=== PATIENT | female | born 1965 | race Caucasian/White ===

== ENCOUNTER 2017-02-01 06:09 | Day surgery (SDC) | payer OTHER ==
[~2017-02-01] VITALS: Ht 180.3 cm; Wt 101.3 kg
[~2017-02-01 06:09] MED LIST: ASPIRIN E.C. 8181 MG PO; EFFEXOR XR75 MG/CAP PO; NOLVADEX 1010 MG/TAB PO
[2017-02-01 07:20] VITALS: BP 124/78; PULSE 63; TEMP 98.4
[2017-02-01] MEDS ORDERED: NEURONTIN100 MG/CAP PO (07:25)
[2017-02-01] MEDS ORDERED: OMEGA-3 FISH1000 MG PO (07:26)
[2017-02-01] MEDS ORDERED: ULTRAM 50MG TAB50 MG PO (07:28)
[2017-02-01] MEDS ORDERED: PLAQUENIL 200M200 MG PO (07:32)
[2017-02-01] MEDS ORDERED: VOLTAREN 75 DR75 MG PO (07:32)
[2017-02-01] MEDS ORDERED: PROZAC 20MG20 MG PO (07:33)
[2017-02-01] MEDS ORDERED: TOPROL XL100 MG PO (07:34)
[2017-02-01] MEDS ORDERED: ASPIRIN 81M81 MG/TA2 PO (07:34)
[2017-02-01] MEDS ORDERED: SYNTHROID0.05 MG/TA PO (07:35)
[2017-02-01] MEDS ORDERED: AMBIEN 5MG TABLE5 MG PO (07:35)
[2017-02-01] MEDS ORDERED: MELATONIN1 MG PO (07:35)
[2017-02-01] MEDS ORDERED: VITAMIN D32000 IU PO (07:36)
[2017-02-01] MEDS ORDERED: CRESTOR40 MG PO (07:36)
[2017-02-01 08:38] VITALS: BP 130/74; PULSE 66; TEMP 98.7
[2017-02-01 08:53] VITALS: BP 122/67; PULSE 67
[2017-02-01 09:08] VITALS: BP 114/71; PULSE 62
[2017-02-01 09:22] VITALS: BP 115/62; PULSE 68
== END 2017-02-01 09:15 | disposition home or self-care (01) ==
LOC: SDCO 06:09
DX: Z12.11 Encounter for screening for malignant neoplasm of colon (principal); K52.9 Noninfective gastroenteritis and colitis, unspecified; K63.3 Ulcer of intestine; K64.1 Second degree hemorrhoids; K64.4 Residual hemorrhoidal skin tags; E78.00 Pure hypercholesterolemia, unspecified; F17.200 Nicotine dependence, unspecified, uncomplicated; E07.9 Disorder of thyroid, unspecified; Z85.3 Personal history of malignant neoplasm of breast
CPT/HCPCS: J2250; J2405; J3010; J7030

== ENCOUNTER 2020-05-04 16:20 | Inpatient (IN) | payer OTHER ==
[~2020-05-04] VITALS: Ht 180.3 cm; Wt 95.0 kg
[~2020-05-04 16:20] MED LIST changes: +AMBIEN 5MG TABLE5 MG PO; +ASPIRIN 81M81 MG/TA2 PO; +CRESTOR40 MG PO; +MELATONIN1 MG PO; +NEURONTIN100 MG/CAP PO; +OMEGA-3 FISH1000 MG PO; +PLAQUENIL 200M200 MG PO; +PROZAC 20MG20 MG PO; +SYNTHROID0.05 MG/TA PO; +TOPROL XL100 MG PO; +ULTRAM 50MG TAB50 MG PO; +VITAMIN D32000 IU PO; +VOLTAREN 75 DR75 MG PO
[2020-05-04] MEDS ORDERED: TRICOR 48MG48 MG PO (17:20)
[2020-05-04 17:56] VITALS: BP 134/68; PULSE 80; TEMP 98.4
--- NOTE | 2020-05-04 18:25 | NUR ---
PT SETTLED INTO ROOM, INTRODUCED TO CALL LIGHT AND PHONE, KEY ACCOUNT REPRESENTATIVE NUMBER PROVIDED FOR PT AND PT SPOUSE. MED REC, ADMISSION INITIAL AND ADMISSION B, ALLERGIES, SUICIDE ASSESSMENT, COVID SCREEN, INFECTIOUS DISEASE SCREEN ALL COMPLETED FOR PT. SOCKS AND PANTS PROVIDED PER PT REQUEST. MAURICE ALBERTS ALERTED TO PT ARRIVAL. PT REPORTS NO PAIN AT THIS TIME BUT REPORTS BEING VERY HUNGRY. NO OTHER NEEDS AT THIS TIME.
--- NOTE | 2020-05-04 18:30 | NUR ---
DIET ORDER PLACED, KITCHEN CALLED FOR DINNER.
[2020-05-04 19:04] VITALS: BP 131/59; PULSE 82; TEMP 97.9
[2020-05-04] MEDS ORDERED: CYMBALTA 60MG60 MG PO (22:00)
[2020-05-04 23:46] VITALS: BP 108/54; PULSE 74; TEMP 98.3
--- NOTE | 2020-05-05 01:08 | NUR ---
Pt assessment completed, charted, alert, oriented, roomair, independent. Med provided as per NOV, tolerated well. Loose stool for couple of times, stool sample send to lab. Settled on bed, call light on reach. No further needs at this time.
[2020-05-05 03:19] VITALS: BP 114/59; PULSE 71; TEMP 98.4
--- NOTE | 2020-05-05 05:16 | NUR ---
Pt had an uneventful night, slept through out the night. No further needs at this time.
[2020-05-05 07:29] LABS: BASO % 0.5 % (0.0-2.0); EOS # 0.1 (0.0-0.7); EOS % 3.2 % (0-4.0); GRAN # 2.5 (1.4-6.5); GRAN % 61.5 % (42.2-75.2); HEMOGLOBIN 12.1 g/dl (12.5-16.0); INR 1.1 (0.8-3.0); LYMPH % 24.1 % (20.0-51.0); MEAN CELL VOLUME 95 fl (80.0-100.0); MEAN CORPUSCULAR HEMOGLOBIN 32 pg (27.0-31.0); MEAN CORPUSCULAR HGB CONC 34 g/dl (33.0-37.0); MONO # 0.4 (0.1-0.6); MONO % 10.7 % (1.7-9.3); PLATELET COUNT 189 K/mm3 (130-400); PROTHROMBIN TIME 12.3 SECONDS (9.7-12.8); RED BLOOD COUNT 3.79 M/mm3 (4.10-5.30)
[2020-05-05 07:31] LABS: HEMATOCRIT 35.9 % (37.0-47.0)
[2020-05-05 07:33] LABS: ALBUMIN 3.4 gm/dL (3.5-5.0); BILIRUBIN,TOTAL 0.5 mg/dL (0.0-1.0); C-REACTIVE PROTEIN 1.1 mg/dL (0.0-0.9); CALCIUM 8.3 mg/dL (8.4-10.2); CREATININE, serum 1.1 (0.52-1.25); MAGNESIUM 1.7 mg/dL (1.6-2.3); POTASSIUM 3.6 mmol/L (3.4-5.0); TOTAL PROTEIN 5.9 gm/dL (6.4-8.2)
--- NOTE | 2020-05-05 08:00 | NUR ---
PT PLEASANT, AOX4, IV CDI, PT REPORTS SLIGHT PAIN IN ABD FROM VOMITING YESTERDAY, REPORTS NO VOMITING OVERNIGHT. PT HAD DIHARREA X4 LAST NIGHT. PT NPO AT 0600. VITALS REVIEWED, MEDICATIONS GIVEN, ASSESSMENT PERFORMED. NO OTHER NEEDS AT THIS TIME.
[2020-05-05 08:17] VITALS: BP 127/57; PULSE 74; TEMP 98.1
--- NOTE | 2020-05-05 10:15 | NUR ---
ALICJA met with the patient to discuss discharge plan. The patient lives in [place] with her , Balbir (ph#[phone]). She reports independence with ADLs and does not have any DME. The patient's PCP is Dr. Flynn at [facility] and she also receives her medications at [facility]. The patient does not have advanced directives and she was not interested in completing a DPOA-HC at this time. The patient plans to return home with her upon discharge. No additional needs at this time.
--- NOTE | 2020-05-05 11:59 | NUR ---
BROUGHT PT CHICKEN BROTH, COFFEE, AND JELLO PER PT REQUEST. CALLED KITCHEN TO INFORM OF DIET CHANGE.
[2020-05-05 12:39] VITALS: BP 139/55; PULSE 74; TEMP 98.3
--- NOTE | 2020-05-05 15:17 | NUR ---
Initial visit; Patient and family member thanked [facility] for looking in on her, using sense of humor in ministering and the meaningful prayer.
[2020-05-05 16:55] VITALS: BP 116/57; PULSE 80; TEMP 97.8
--- NOTE | 2020-05-05 16:57 | NUR ---
PT PLEASANT, AOX4, PT NOT REPORTING PAIN DURING SHIFT OTHER THAN SLIGHT DISCOMFORT IN RIBS FROM PAST VOMITING. PT HAS BEEN HAVING DIHARREA DURING SHIFT. PT HAS CONSENT FOR EGD/COLON SCHEDULED FOR 0700 TOMORROW MORNING. BOWEL PREP SCHEDULED TO START. PT HAS BEEN ENJOYING BROTH FROM CLEAR LIQUID DIET. PT HAD FRAGILE EMOTIONAL STATE EARILER IN DAY UNTIL CYMBALTA WAS CONTINUED, ONCE CONTINUED AND GIVEN PT CALMED DOWN. BEEN AT BEDSIDE, INPUT GOOD, IV FLUIDS RUNNING. NO OTHER NEEDS AT THIS TIME.
[2020-05-05 19:36] VITALS: BP 132/54; PULSE 83; TEMP 98.3
--- NOTE | 2020-05-05 19:36 | NUR ---
Pt assessment completed and documented. Pt resting in bed at this time with at bedside. Pt alert and oriented x4. Denies pain. Requesting to start bowel prep after she finishes dinner. IVF infusing per orders to left ac IV. Pt denies any other needs. Call light within reach.
[2020-05-05 22:59] VITALS: BP 137/70; PULSE 77; TEMP 97.5
[2020-05-06] VITALS (11 sets, daily range): BP systolic 109–150; BP diastolic 56–75; PULSE 65–82; TEMP 97.9–98.7
--- NOTE | 2020-05-06 06:15 | NUR ---
Pt awake on and off throughout the night going to the bathroom. Pt states she was finally able to get some good sleep around 0300. IVF infusing per orders to left ac IV. Bowel movements have been clear since midnight. Pt denies any other needs. Call light within reach.
--- NOTE | 2020-05-06 07:50 | NUR ---
Patient to room 316 from procedure. A&Ox3. Denies pain and discomfort. VSS. IV CDI, fluids to gravity. Patient wanting to eat, nurse ordered a breakfast tray. No further needs expressed from the patient. VS monitored Post-op. Call light within reach
--- NOTE | 2020-05-06 09:43 | NUR ---
Patient back to room 316 from procedure. Patient A&Ox3. Denies pain and discomfort. VSS. IV CDI, fluids to gravity. Patient wanting to eat, nurse ordered a breakfast tray. No further needs expressed from patient. VS monitored post-op. Call light within reach.
[2020-05-06 11:02] LABS: BASO % 0.7 % (0.0-2.0); EOS # 0.1 (0.0-0.7); EOS % 2.5 % (0-4.0); GRAN # 2.8 (1.4-6.5); HEMATOCRIT 34.2 % (37.0-47.0); HEMOGLOBIN 11.6 g/dl (12.5-16.0); LYMPH # 1.2 (1.2-3.4); LYMPH % 26.3 % (20.0-51.0); MEAN CELL VOLUME 94 fl (80.0-100.0); MEAN CORPUSCULAR HEMOGLOBIN 32 pg (27.0-31.0); MEAN CORPUSCULAR HGB CONC 34 g/dl (33.0-37.0); MEAN PLATELET VOLUME 9.2 fl (7.4-10.4); MONO # 0.4 (0.1-0.6); MONO % 8.3 % (1.7-9.3); PLATELET COUNT 198 K/mm3 (130-400); RED BLOOD COUNT 3.64 M/mm3 (4.10-5.30); REDCELL DISTRIBUTION WIDTH-CV 11.9 % (11.5-14.5)
[2020-05-06 11:17] LABS: ALBUMIN 3.3 gm/dL (3.5-5.0); BILIRUBIN,TOTAL 0.3 mg/dL (0.0-1.0); CALCIUM 8.6 mg/dL (8.4-10.2); CREATININE, serum 0.96 (0.52-1.25); POTASSIUM 4.2 mmol/L (3.4-5.0); TOTAL PROTEIN 5.9 gm/dL (6.4-8.2)
--- NOTE | 2020-05-06 18:29 | NUR ---
Patient has had several episodes of loose stools and complaints of cramping after eating. Patient states that "everything she eats goes through her, even water" ARISTEO [place] aware. VSS. Patient A&Ox3. IV CDI, fluids infusing. Patient independent in room. No further needs expressed from the patient. Call light within reach
--- NOTE | 2020-05-06 19:55 | NUR ---
Pt assessment completed and documented. Pt resting in bed at this time. at bedside. Pt alert and oriented x4. States she is still having frequent bowel movements. Complaints of intermittent generalized abdominal pain that is worse with palpation. Denies need for pain medication. IVF infusing per orders to left ac IV. Requesting to take a shower soon. Pt denies any other needs. Call light within reach. Will continue to monitor.
[2020-05-07 03:47] VITALS: BP 133/63; PULSE 73; TEMP 98.2
--- NOTE | 2020-05-07 05:48 | NUR ---
Pt has been awake intermittently throughout the night. Pt continued to have diarrhea throughout the night. Complaints of abdominal pain once at the beginning of the shift that pt stated was dull and worse with palpation. IVF infusing per orders to left ac IV. Pt denies any other needs at this time. Call light within reach.
[2020-05-07 07:28] VITALS: BP 143/70; PULSE 72; TEMP 98.2
--- NOTE | 2020-05-07 07:40 | NUR ---
Patient resting in bed, easily awakened with verbal command. A&Ox4. Reports cramping after having bowel movements. IV CDI, fluids infusing. Patient wanting to talk with the GI doctor today. No further needs expressed from the patient. Call light within reach
[2020-05-07 12:40] VITALS: BP 144/71; PULSE 79; TEMP 98.6
[2020-05-07] MEDS ORDERED: LIALDA 1.2 GM1.2 GM PO (14:04)
[2020-05-07] MEDS ORDERED: BENTYL 10MG10 MG/CAP PO (14:04)
[2020-05-07] MEDS ORDERED: PEPCID 20MG TAB20 MG PO (14:04)
[2020-05-07] MEDS ORDERED: LEVAQUIN 5500 MG/TA1 PO (14:04)
[2020-05-07] MEDS ORDERED: PROBIOTIC ACID1 EAC3 PO (14:04)
[2020-05-07] MEDS ORDERED: ZOFRAN 4MG T4 MG/TAB PO (14:04)
--- NOTE | 2020-05-07 14:09 | NUR ---
Discharge paperwork reviewed with the patient and . Patient verbalized an understanding to follow doctors orders. IV removed, tip intact, gauze and coban applied. Patient tolerated well. No further needs expressed from the patient. Call light within reach
--- NOTE | 2020-05-07 14:42 | NUR ---
Patient ambulated independently to vehicle with the nurse. Discharge paperwork and personal belongings with patient. with the patient
[2020-05-10 11:02] LABS: OVA AND PARASITE EXAM XXX
== END 2020-05-07 14:43 | disposition home or self-care (01) | DRG 392 ==
LOC: MEDICAL 17:33
PROVIDERS: Internal Medicine Gastroenterology; Physician Assistant; ADMIT Internal Medicine
PROC: 0DBB8ZX Excision of Ileum, Via Natural or Artificial Opening Endoscopic, Diagnostic (ICD-10-PCS; principal; 2020-05-06 07:00)
PROC: 0DBE8ZX Excision of Large Intestine, Via Natural or Artificial Opening Endoscopic, Diagnostic (ICD-10-PCS; 2020-05-06 07:00)
DX: A09 Infectious gastroenteritis and colitis, unspecified (principal); N17.9 Acute kidney failure, unspecified; E44.0 Moderate protein-calorie malnutrition; E03.9 Hypothyroidism, unspecified; K21.9 Gastro-esophageal reflux disease without esophagitis; F17.210 Nicotine dependence, cigarettes, uncomplicated; R74.0 Nonspecific elevation of levels of transaminase and lactic acid dehydrogenase [LDH]; K29.60 Other gastritis without bleeding; K29.80 Duodenitis without bleeding; M32.0 Drug-induced systemic lupus erythematosus; Z85.3 Personal history of malignant neoplasm of breast
CPT/HCPCS: 99222-AI; 99232-AI; 99239; J1644; J2405; J2704; J2765; J7030